=== PATIENT | male | born 2005 | race Caucasian/White ===

== ENCOUNTER 2024-09-03 10:10 | Emergency (ER) | payer BC, MEDICAID ==
[~2024-09-03] VITALS: Ht 180.3 cm; Wt 75.0 kg
[2024-09-03 10:11] VITALS: BP 137/67; PULSE 101; RESP 16; TEMP 98.7; O2SAT 99
== END 2024-09-03 11:02 | disposition home or self-care (01) ==
LOC: ER 10:10
DX: J02.9 Acute pharyngitis, unspecified (principal); R05.9 Cough, unspecified; R52 Pain, unspecified
CPT/HCPCS: 99282